=== PATIENT | male | born 1955 | race Two or more races ===

== ENCOUNTER 2018-09-24 06:25 | Inpatient (IN) | payer BC ==
[~2018-09-24] VITALS: Ht 170.2 cm; Wt 102.5 kg
[2018-09-24] VITALS (7 sets, daily range): BP systolic 98–124; BP diastolic 45–75
[2018-09-24] MEDS ORDERED: ANESTHESIA TRAY IN PYXIS 1 EA TRAY MC ONE (07:04)
[2018-09-24] MEDS ORDERED: ACETAMINOPHEN 325 MG TABLET ONE (07:07)
[2018-09-24] MEDS ORDERED: KETOROLAC TROMETHAMINE INJ 30 MG/ML VIAL ONE (07:07)
[2018-09-24] MEDS ORDERED: CELECOXIB 100 MG CAPSULE ONE (07:07)
[2018-09-24] MEDS ORDERED: HYDROMORPHONE INJ 2 MG/ML DISP.SYRIN ONE (07:10)
[2018-09-24] MEDS ORDERED: oxyCODONE HCL SR 20MG TAB.SR.12H PO ONE (07:10)
[2018-09-24] MEDS ORDERED: PROPOFOL 100 ML ONE ×2 (07:10)
[2018-09-24] MEDS ORDERED: ROCURONIUM BROMIDE 50 MG/5 ML ONE (07:10)
[2018-09-24] MEDS ORDERED: HEPARIN SODIUM, PORCINE 5000 UNITS/1 ML VIAL ONE (07:21)
[2018-09-24] MEDS ORDERED: POVIDONE-IODINE OINT 28.4 GM TUBE ONE (07:23)
[2018-09-24] MEDS ORDERED: LIDOCAINE 1%-EPI 1:100,000 20 ML VIAL ONE (08:13)
[2018-09-24] MEDS ORDERED: BUPIVACAINE 0.25% 75 MG/30 ML VIAL ONE (08:15)
[2018-09-24] MEDS ORDERED: FENTANYL PF 100MCG/2ML AMPUL ONE (11:43)
[2018-09-24] MEDS ORDERED: TYLENOL 650 MG TABLET PO PRN (12:00)
[2018-09-24] MEDS ORDERED: ZOFRAN 4mg/2ML IV PRN (12:00)
[2018-09-24] MEDS ORDERED: AMBIEN 5 MG TABLET PO PRN (12:00)
[2018-09-24] MEDS ORDERED: CEFAZOLIN 1 GM ONE (12:09)
[2018-09-24] MEDS: HYDROCODONE/APAP 5/325MG 1 EACH TABLET PO PRN (13:51)
[2018-09-24] MEDS ORDERED: LISI10TA5 PO (14:18)
[2018-09-24] MEDS ORDERED: ATOR40TA PO (14:18)
[2018-09-24] MEDS ORDERED: ASPI-1169 PO (14:18)
[2018-09-24] MEDS ORDERED: METF-440 PO (14:18)
[2018-09-24] MEDS ORDERED: AMLO10TA7 PO (14:18)
[2018-09-24] MEDS ORDERED: OMEG1CAP PO (14:18)
[2018-09-24] MEDS ORDERED: CHOL500052 PO (14:18)
[2018-09-24] MEDS ORDERED: HYDR-4384 PO (14:18)
--- NOTE | 2018-09-24 14:21 | NUR ---
MS RN NOTE RECEIVED PATIENT FROM SURGERY, ALERT ORIENTED S\P POSTERIOR LAMINECTOMY C5\C7 . UNDER CARE DONNA , NECK COLLAR IN PLACE , CALLED MED RECON NURSE TO PLACE [facility] , ON 2L NC ,NO SOB NOTED , BACK OF NECK DRESSING INTACT NO BLEEDING NOTED , CALLED TANMAY KHAN RN DISPATCHER [place] FOR ADMISSION ,HEMOVAC IN PLACE WITH BLOODY DRAINAGE NOTED , HOSPITAL ORIENTATION DONE , VS TAKEN , BED IN LOWEST AND LOCKED POSITION ,BOTH LEGS WITH DVT PUMPS WILL CONT TO MONITOR CLOSELY NORCO PO I TAB GIVEN FOR PAIN,
--- NOTE | 2018-09-24 14:30 | NUR ---
MS RN NOTE SEEN BY PT ABLE TO SIT AT EDGE OF BED TOLERATED WELL INTENSIVE SPIROMETER GIVEN EXPLAINED HOW TO USE
[2018-09-24] MEDS ORDERED: INSULIN REGULAR, HUMAN 100 UNIT/ML 3 ML VIAL SQ PRN (15:00)
[2018-09-24] MEDS ORDERED: DEXTROSE 50%-WATER 50 ML DISP.SYRIN IV PRN (15:00)
--- NOTE | 2018-09-24 15:00 | NUR ---
RN NOTE SPOKE WITH TANMAY SALGUERO RN SEAMAN ABOUT ADMISSION ORDER, STATED THAT WILL DO IT , ALSO OK TO ORDER ACU CHECK MED RECON DONE TANMAY SOLANO, WILL CHECK IT SOON Addendum: 09/24/18 at 1629 by DARLENE ALVAREZ RN SPOKE WITH TANMAY OLIVARES NP ABOUT TO HAVE IVF .STATED THAT WILL CHECK PATIENT FIRST WILL F\U
[2018-09-24] MEDS: HYDROMORPHONE 1 MG/1 ML DISP.SYRIN IV PRN ×2 (16:33→21:05)
[2018-09-24] MEDS: BLOOD SUGAR DIAGNOSTIC 1 EACH STRIP IN SCH ×2 (17:30→22:00)
[2018-09-24] MEDS: ANCEF 1 G in IV D5W 50 ML IV SCH (18:04)
--- NOTE | 2018-09-24 19:54 | NUR ---
RN OPENING NOTES REPORT RECEIVED FROM DARLENE OLIVARES. PATIENT A/A/O X3, ABLE TO MAKE NEEDS KNOWN. BREATHING EVEN & UNLABORED, TOLERATING O2 2LPM VIA NC. DENIES SOB OR DIFFICULTY BREATHING. RADIAL PULSES PRESENT. LEFT WRIST IV #22 INTACT & PATENT W/ DRESSING CDI, SALINE LOCKED. DENIES ANY PAIN OR DISCOMFORT @ THIS TIME. SOFT CERVICAL COLLAR IN PLACE & HEMOVAC DRAINING PINK TINGED OUTPUT. SAFETY MEASURES IN PLACE W/ SIDE RAILS UP & BED LOCKED IN LOWEST POSITION. INSTRUCTED TO CALL FOR ASSISTANCE WHEN NEEDING TO AMBULATE OR SIT ON EDGE OF BED. BEDSIDE COMMODE PLACED AT BEDSIDE. WILL CONTINUE TO MONITOR & MANAGE PAIN.
[2018-09-25] MEDS: ANCEF 1 G in IV D5W 50 ML IV SCH (02:37)
[2018-09-25] MEDS: HYDROMORPHONE 1 MG/1 ML DISP.SYRIN IV PRN ×2 (02:50→08:48)
[2018-09-25 04:00] VITALS: BP 126/67
[2018-09-25] MEDS: HYDROCODONE/APAP 5/325MG 1 EACH TABLET PO PRN ×2 (06:04→13:26)
[2018-09-25 06:38] LABS: BASOPHILS % (AUTO) 0.1 % (0.0-2.0); HEMATOCRIT 37 % (39-51); HEMOGLOBIN 12.6 g/dL (13.5-17.5); LYMPHOCYTES # (AUTO) 1.6 /CMM (0.8-4.8); LYMPHOCYTES % (AUTO) 15.6 % (20.0-44.0); MEAN CORPUSCULAR HGB CONC 34 g/dl (31.0-36.0); MEAN CORPUSCULAR VOLUME 90 fL (80-96); MONOCYTES # (AUTO) 0.6 /CMM (0.1-1.30); MONOCYTES % (AUTO) 5.9 % (2.0-12.0); NEUTROPHILS # (AUTO) 8.2 /CMM (1.8-8.9); NEUTROPHILS % (AUTO) 78.4 % (43.0-81.0); PLATELET COUNT (AUTO) 224 /CMM (150-450); RED BLOOD CELL COUNT(AUTO) 4.14 MIL/uL (4.5-6.0); WHITE BLOOD COUNT (AUTO) 10.5 K/uL (4.3-11.0)
[2018-09-25 06:49] LABS: CALCIUM, SERUM 8.6 mg/dL (8.5-10.1); CREATININE 0.7 mg/dL (0.6-1.3)
--- NOTE | 2018-09-25 07:06 | NUR ---
RN NOTES LOCKWOOD CATHETER TAKEN OUT PER MD ORDER. WILL ENDORSE TO AM NURSE TO MONITOR.
--- NOTE | 2018-09-25 07:30 | NUR ---
MS RN NOTE PATIENT RECEIVED IN CHAIR SITTING UP IN CHAIR. PATIENT NO HAS NO S/S OF RESP DISTRESS, OR CHEST PAIN. PATIENT EDUCATED ON IMPORTANCE OF USING INCENTIVE SPIROMETER AT LEAST ONCE EVERY HOUR. PATIENT ALSO INSTRUCTED THAT THE PATIENT SHOULD BE ABLE TO VOID ON HIS OWN WITHIN SIX HOURS OF LOCKWOOD CATHETER REMOVAL. IT WAS REMOVED AT 7, AND INSTRUCTED PATIENT TO NOTIFY RN SOON HE VOIDS. CALL LIGHT AT HAND ALL NEEDS ATTENDED. RN TO CONTINUE TO MONITOR PATIENT.
[2018-09-25 07:47] VITALS: BP 129/69
[2018-09-25] MEDS: BLOOD SUGAR DIAGNOSTIC 1 EACH STRIP IN SCH ×3 (07:50→17:37)
[2018-09-25] MEDS ORDERED: AMLODIPINE BESYLATE 10 MG TABLET PO SCH (09:00)
[2018-09-25] MEDS ORDERED: ATORVASTATIN 40 MG TABLET PO SCH (09:00)
[2018-09-25] MEDS ORDERED: ASPIRIN 81 MG TAB.CHEW PO SCH (09:00)
[2018-09-25] MEDS ORDERED: LISINOPRIL (10MG) 10 MG TABLET PO SCH (09:00)
[2018-09-25] MEDS ORDERED: Medication Not On Formulary EA (Omega-3 Fatty Acids/Fish Oil (Fish Oil 1,000 Mg Capsule) PO SCH (09:00)
[2018-09-25 11:16] VITALS: BP 145/74
[2018-09-25 12:00] VITALS: BP 145/74
[2018-09-25 15:41] VITALS: BP 129/67
--- NOTE | 2018-09-25 17:23 | NUR ---
POD#1 S/P right C4-T1 posterior foraminotomies. He lives locally with spouse. Prior to admission, he was ambulatory and independent with adl's. PT treatment: CGA 150 ft ambulation FWB. Current dc plan is to return home , spouse will provide ride. Addendum: 09/25/18 at 1723 by ERICA FREDERICK RN Amended: Links added.
--- NOTE | 2018-09-25 18:16 | NUR ---
MS RN NOTE PATIENT D/C AND EXIT CARE COMPLETED. SURGICAL DRESSING DRY AND INTACT AND CLEAN TO BE REMOVED BY SURGEON 10/07/2018. PATIENT HAS FOLLOW UP WITH JEANMARIE 09/28/2018.. PATIENT LEAVING STABLE WITH . ALL IV ACCESS REMOVED, PT DENIES CHEST PAIN, SOB, OR DISCOMFORT.
[2018-09-28] MEDS ORDERED: ERGOCALCIFEROL (VITAMIN D 2) 50,000 UNIT CAPSULE PO SCH (09:00)
== END 2018-09-25 18:50 | disposition home health service (06) | DRG 516 ==
LOC: DS 06:25 → MEDSG1 10:35
PROVIDERS: ADMIT Specialist; ATTEND Specialist
DX: M48.03 Spinal stenosis, cervicothoracic region (principal); I69.351 Hemiplegia and hemiparesis following cerebral infarction affecting right dominant side; M54.12 Radiculopathy, cervical region; I10 Essential (primary) hypertension; E11.9 Type 2 diabetes mellitus without complications; D63.8 Anemia in other chronic diseases classified elsewhere; Z90.49 Acquired absence of other specified parts of digestive tract; M54.30 Sciatica, unspecified side; Z82.49 Family history of ischemic heart disease and other diseases of the circulatory system; Z83.3 Family history of diabetes mellitus
CPT/HCPCS: 36415; 72040-TC; 80048-TC; 82962-TC; 85025-TC; 87081-TC; 97116-TC; 97530-TC; A6209; A6402; G0378; J0690; J1100; J1170; J1644; J1815; J1885; J2405; J2704; J3010; J3490; J7030; J7050; J7060